=== PATIENT | female | born 1945 | race Caucasian/White ===

== ENCOUNTER 2022-01-11 08:50 | Emergency (ER) | payer OTHER ==
[2022-01-11 08:56] VITALS: BMI 26.6
[2022-01-11] MEDS ORDERED: BEBTELOVIMAB (EUA) 175 MG/2 ML VIAL IVPUSH ONE (09:06)
[2022-01-11 10:40] VITALS: BP 145/67; PULSE 97; TEMP 97.8
== END 2022-01-11 10:54 | disposition home or self-care (01) ==
LOC: JCOVINFU 08:50
DX: U07.1 COVID-19 (principal); R05.1 Acute cough
CPT/HCPCS: 99284-25; M0222; Q0222